=== PATIENT | female | born 1940 | race Hispanic/Latino ===

== ENCOUNTER 2022-01-27 10:15 | Emergency (ER) | payer OTHER ==
--- OUTSIDE RECORDS SUMMARY | 2022-01-27 10:20 | XMS REPORT | Continuity of Care Document ---
:1940 Author Organization [facility] t Address [address] [place] [address] Care Team Providers Name Role Phone Alannah HARDING, A Primary Care Physician Jose Elias Barbour Attending Clinician Unavailable Corbin Klein MD Attending Clinician Doctor Unassigned, Name Attending Clinician Unavailable Jose DUARTE Attending Clinician Unavailable Jose COLLINS Attending Clinician Unavailable JUANY Attending Clinician Unavailable JOSELYN Attending Clinician Unavailable Kallie WELDON Attending Clinician Unavailable CORBIN KLEIN Attending Clinician Unavailable Juan Manuel MESA Attending Clinician Unavailable Juan Manuel MESA Admitting Clinician Unavailable Payers Payer Name Policy Type Policy Number Effective Date Expiration Date S jennifer [employer] MEDICARE ADV [id number] 2019 00:00:00 Problems Condition Condition Condition Status Onset Resolution Last Treating Co mments Source Name Details Category Date Date Treatment Clinician Date Epigastric Epigastric Disease Active N PI:183 pain pain 4-17 [id number] 00:00: 00 Abdominal Abdominal Disease Active NPI :183 pain, pain, 4-11 [id number] lower lower 00:00: 00 Arthritis Arthritis Disease Active NPI :183 4-11 [id number] 00:00: 00 Dysuria Dysuria Disease Active NPI:183 4-11 [id number] 00:00: 00 Vertigo Vertigo Disease Active Overview: NPI: 183 1-01 Formattin [id number] 00:00: g of this 00 note might be different from the original. still with occasiona l episodes Stroke Stroke Disease Active Overview: NPI:18 3 - Formattin [id number] 00:00: g of this 00 note might be different from the original. multiple ministrok es, residual memory problems after High High Disease Active NPI:183 cholestero cholestero 13 60888 l l Osteopenia Osteopenia Disease Active Overview : NPI:183 Formattin [id number] g of this note might be different from the original. initially diagnosed 2005, last DEXA around 02/2019. Allergies, Adverse Reactions, Alerts Allergy Allergy Status Severity Reaction(s) Onset Inactive Treating Comm ents Source Name Type Date Date Clinician BENZALKO DRUG Active Other-Cmnt NPI: 183 NIUM INGREDI 4-16 [id number] 00:00: 00 FLUTICAS DRUG Active Other-Cmnt NPI: 183 ONE INGREDI 4-16 [id number] FUROATE 00:00: 00 Benzalko Propensi Active Other - See 0 Nose N PI:183 nium ty to comments 4-16 spray, [id number] adverse 00:00: nose and reaction 00 mouth s ulcers. Fluticas Propensi Active Other - See 0 Mouth an d NPI:183 one ty to comments 4-16 nose [id number] Furoate adverse 00:00: ulcers reaction 00 s AMLODIPI DRUG Active Unknown-Cmnt 2018-09 DIRECTOR OF SPEECH PATHOLOGY I:183 NE INGREDI 2-30 [id number] 00:00: 00 ATENOLOL DRUG Active Unknown-Cmnt 2018-09 DIRECTOR OF SPEECH PATHOLOGY I:183 -CHLORTH 2-30 [id number] ALIDONE 00:00: 00 CODEINE DRUG Active Rash 2018-09 NPI:183 INGREDI 2-30 [id number] 00:00: 00 IODINE DRUG Active ITCHING 2018-09 NPI:183 INGREDI 2-30 [id number] 00:00: 00 MOMETASO DRUG Active Other-Cmnt 2018-09 NPI: 183 NE INGREDI 2-30 [id number] FUROATE 00:00: 00 SULFAMET DRUG Active Rash 2018- NPI:183 HOXAZOLE INGREDI 2-30 [id number] 00:00: 00 Amlodipi Propensi Active Unknown - 2018- NPI :183 ne ty to See comments 2 1318 781 adverse 00:00: reaction 00 s Atenolol Propensi Active Unknown - 2018-09 NPI :183 -Chlorth ty to See comments 13 22811 alidone adverse 00:00: reaction 00 s Codeine Propensi Active Rash 2018-09 NPI:183 ty to 2 [id number] adverse 00:00: reaction 00 s Iodine Propensi Active Itching 2018-09 Had NPI:183 ty to 230 iodine [id number] adverse 00:00: through reaction 00 veins s Mometaso Propensi Active Other - See 2018-09 Mouth an d NPI:183 ne ty to comments nose [id number] Furoate adverse 00:00: ulcers reaction 00 s Sulfamet Propensi Active Rash 2018-09 NPI:18 3 hoxazole ty to [id number] adverse 00:00: reaction 00 s Social History Social Habit Start Date Stop Date Quantity Comments Source Alcohol intake 2021-01-01 2021-01-01 Ex-drinker NPI:[id number] 00:00:00 00:00:00 (finding) Tobacco use and 2020-01-03 2020-01-03 Never used NPI:[id number] 45609 exposure 00:00:00 00:00:00 Sex [birth year] At [birth year] NPI:[id number] 43491 00:00:00 00:00:00 Smoking Status Start Date Stop Date Source Never smoker Medications Ordered Filled Start Stop Current Ordering Indication Dosage Frequency Signature Comments Components Source Medication Medication Date Date Medication? Clinician (SIG) Name Name GABAPENTIN Yes [id number] TAKE THREE NPI:183 300 mg 5-03 CAPSULES [id number] capsule 00:00: BY MOUTH 00 THREE TIMES A DAY loratadine Yes 10mg Take 10 mg N PI:183 10 mg 4-08 by mouth [id number] tablet 09:11: daily. 26 cholecalcif 2020- Yes 1{tbl} Take 1 DIRECTOR OF SPEECH PATHOLOGY I:183 gabriel, 4-08 tablet by [id number] vitamin D3, 09:11: mouth (D3-2000 26 daily. ORAL) aspirin 2020- Yes 81mg Take 81 mg NPI: 183 (ASPIR-81 4-08 by mouth [id number] 1 ORAL) 09:11: daily. 26 calcium 2020-0 Yes 1{tbl} Take 1 NPI:18 3 carbonate/v 4-08 tablet by 131 8781 itamin D2 09:11: mouth 2 (CALCIUM 26 (two) 600 + D times ORAL) daily. acetaminoph 2020-0 Yes 1{tbl} Take 1 DIRECTOR OF SPEECH PATHOLOGY I:183 en (TYLENOL 4-08 tablet by 131 8781 ARTHRITIS 09:11: mouth as ORAL) 26 needed. MULTIVITAMI 2020-0 Yes Take by DIRECTOR OF SPEECH PATHOLOGY I:183 N ORAL 4-08 mouth. [id number] 09:11: 26 MYTAB GAS, 2020-0 Yes Take by NPI :183 SIMETHICONE 4-08 mouth. [id number] 1 , ORAL 09:11: 26 Red Yeast 2020-0 Yes 1{capsu Take 1 NPI :183 Rice 4-08 le} capsule by [id number] Extract 600 09:11: mouth 2 mg Cap 26 (two) times daily. vitamin e 2020-0 Yes 400U Take 400 NPI: 183 400 unit 4-08 Units by [id number] capsule 09:11: mouth 26 daily. cranberry 2020-0 Yes 4200mg Take 4,200 NPI:183 fruit 4-08 mg by [id number] extract 09:11: mouth (CRANBERRY 26 daily. ORAL) carboxymeth 2020-[address] in N PI:183 ylcellulose 4-08 each eye. 131 8781 sodium 09:11: (REFRESH 26 OPHTHALMIC) peppermint 2020-0 Yes Take by NPI :183 oil 4-08 mouth. [id number] (PEPPERMINT 09:11: capsules ORAL) 26 for GERD loratadine 2020-0 Yes 10mg Take 10 mg N PI:183 10 mg 4-08 by mouth [id number] tablet 09:11: daily. 26 cholecalcif 202-0 Yes 1{tbl} Take 1 DIRECTOR OF SPEECH PATHOLOGY I:183 gabriel, 4-08 tablet by [id number] vitamin D3, 09:11: mouth (D3-2000 26 daily. ORAL) aspirin 202-0 Yes 81mg Take 81 mg NPI: 183 (ASPIR-81 4-08 by mouth [id number] 1 ORAL) 09:11: daily. 26 calcium 202-0 Yes 1{tbl} Take 1 NPI:18 3 carbonate/v 4-08 tablet by 131 8781 itamin D2 09:11: mouth 2 (CALCIUM 26 (two) 600 + D times ORAL) daily. acetaminoph 0 Yes 1{tbl} Take 1 DIRECTOR OF SPEECH PATHOLOGY I:183 en (TYLENOL 4-08 tablet by 131 8781 ARTHRITIS 09:11: mouth as ORAL) 26 needed. MULTIVITAMI Yes Take by DIRECTOR OF SPEECH PATHOLOGY I:183 N ORAL 4-08 mouth. [id number] 09:11: 26 MYTAB GAS, 0 Yes Take by NPI :183 SIMETHICONE 4-08 mouth. [id number] 1 , ORAL 09:11: 26 Red Yeast 0 Yes 1{capsu Take 1 NPI :183 Rice 4-08 le} capsule by [id number] Extract 600 09:11: mouth 2 mg Cap 26 (two) times daily. vitamin e Yes 400U Take 400 NPI: 183 400 unit 4-08 Units by [id number] capsule 09:11: mouth 26 daily. cranberry Yes 4200mg Take 4,200 NPI:183 fruit 4-08 mg by [id number] extract 09:11: mouth (CRANBERRY 26 daily. ORAL) carboxymeth Yes Place in N PI:183 ylcellulose 4-08 each eye. 131 8781 sodium 09:11: (REFRESH 26 OPHTHALMIC) peppermint Yes Take by NPI :183 oil 4-08 mouth. [id number] (PEPPERMINT 09:11: capsules ORAL) 26 for GERD meloxicam 0 Yes [id number] 15mg Take 1 NPI :183 15 mg 3-16 tablet by [id number] tablet 00:00: mouth 00 daily. alendronate 2020-0 Yes [id number] 70mg Take 1 NPI:183 70 mg 3-16 tablet by [id number] tablet 00:00: mouth 00 weekly. losartan-hy 2020-0 Yes [id number] 1{tbl} Take 1 NPI:183 drochloroth 3-16 tablet by 131 8781 iazide 00:00: mouth 100-25 mg 00 daily. per tablet meloxicam 2020-0 Yes [id number] 15mg Take 1 NPI :183 15 mg 3-16 tablet by [id number] tablet 00:00: mouth 00 daily. gabapentin 2020-0 Yes [id number] 900mg Take 3 NPI:183 300 mg 3-16 capsules [id number] capsule 00:00: by mouth 3 00 (three) times daily. alendronate Yes [id number] 70mg Take 1 NPI:183 70 mg 3-16 tablet by [id number] tablet 00:00: mouth 00 weekly. losartan-hy Yes [id number] 1{tbl} Take 1 NPI:183 drochloroth 3-16 tablet by 131 8781 iazide 00:00: mouth 100-25 mg 00 daily. per tablet gabapentin 2021- No [id number] 900mg Take 3 NPI:183 300 mg 3-16 05-03 capsules [id number] capsule 00:00: 00:00 by mouth 3 00 :00 (three) times daily. meclizine Yes [id number] 25mg Take 1 N PI:183 25 mg 4-16 tablet by [id number] tablet 00:00: mouth 3 00 (three) times daily as needed for Dizziness. meclizine Yes [id number] 25mg Take 1 N PI:183 25 mg 4-16 tablet by [id number] tablet 00:00: mouth 3 00 (three) times daily as needed for Dizziness. Immunizations Ordered Immunization Filled Immunization Date Status Commen ts Source Name Name SARS-COV-2 COVID-19 2020-12-06 Completed NPI:1 [id number] PFIZER VACCINE 00:00:00 SARS-COV-2 COVID-19 2020-12-06 Completed NPI:1 [id number] PFIZER VACCINE 00:00:00 SARS-COV-2 COVID-19 2020-11-15 Completed NPI:1 [id number] PFIZER VACCINE 00:00:00 SARS-COV-2 COVID-19 2020-11-15 Completed NPI:1 [id number] PFIZER VACCINE 00:00:00 Influenza High Dose 2020-06-19 Completed NPI:1 [id number] 00:00:00 Influenza High Dose 2020-06-19 Completed NPI:1 [id number] 00:00:00 Influenza High Dose 2019-07-02 Completed NPI:1 [id number] 00:00:00 Influenza High Dose 2019-07-02 Completed NPI:1 [id number] 00:00:00 Influenza Virus 2015-07-16 Completed NPI:[id number] Vaccine Quad IM 00:00:00 Multi-dose 6+ MO Influenza Virus 2015-07-16 Completed NPI:[id number] Vaccine Quad IM 00:00:00 Multi-dose 6+ MO TDAP 2009-02-17 Completed 00:00:00 TDAP 2009-02-17 Completed 00:00:00 Zoster(Zostavax)([facility] 2008-06-19 Completed ngles) 00:00:00 Zoster(Zostavax)([facility] 2008-06-19 Completed ngles) 00:00:00 Pneumococcal 2006-07-20 Completed NPI:[id number] Polysaccharide, 00:00:00 PPSV23 (PNEUMOVAX) Pneumococcal 2006-07-20 Completed NPI:[id number] Polysaccharide, 00:00:00 PPSV23 (PNEUMOVAX) Procedures Procedure Date / Time Performed Performing Clinician [facility] e AUTHORIZATION FOR RELEASE 2021-06-05 05:01:00 Doctor Unassigned, No OF [facility] Name Encounters Start End Encounter Admission Attending Care Care Encounter Source Date/Time Date/Time Type Type Clinicians Facility Department ID 2021-11-19 Outpatient Barbour, Na STLMLC STLMLC [id number] NPI:174 09:15:02 [id number] 2021-10-14 Outpatient Barbour, Na STLMLC STLMLC [id number] NPI:174 14:33:17 [id number] 2021-10-14 Outpatient Barbour, Na STLMLC STLMLC [id number] NPI:174 14:32:27 [id number] 2021-10-14 Outpatient Barbour, Na STLMLC STLMLC [id number] NPI:174 14:32:03 [id number] 2021-10-14 Outpatient Barbour, Na STLMLC STLMLC [id number] NPI:174 14:31:08 [id number] 2021-10-14 Outpatient Barbour, Na STLMLC STLMLC [id number] NPI:174 14:22:55 [id number] 2021-10-14 Outpatient STLMLC STLMLC [id number] NPI:174 13:50:23 [id number] 2022-01-18 2022-01-18 [facility] [id number] NPI:183 00:00:00 00:00:00 [facility] [id number] Corbin OAKLEY [id number] CANDE?BLEA [phone] [place] [address] [facility] 2021-06-05 2021-06-05 Orders Doctor SHAHLA [id number] NPI:183 00:00:00 00:00:00 Only Unassigned, MIRLANDE [id number] [place] [facility] [id number] 2021-03-11 2021-03-11 [id number] NPI:183 08:00:00 08:00:00 ELKE [id number] 2021-01-16 2021-01-16 Outpatient R [facility] [id number] NPI:183 09:20:00 09:20:00 [id number] 2021-01-01 2021-01-01 [facility] [id number] NPI:183 16:20:00 16:20:00 LONI [id number] 2021-01-01 2021-01-01 [facility] [id number] NPI:183 16:20:00 16:20:00 LONI [id number] 2020-12-31 [facility] [id number] NPI:183 09:30:00 09:30:00 DARA [id number] 2020-12-31 2020-12-31 [facility] [id number] NPI:183 09:30:00 09:30:00 DARA [id number] 2020-12-26 2020-12-26 [facility] [id number] NPI:183 00:00:00 00:00:00 WALKER [id number] 2020-12-26 2020-12-26 Outpatient Arlyn ALVES [facility] [id number] NPI:183 00:00:00 00:00:00 WALKER [id number] 2020-12-25 2020-12-25 Outpatient Arlyn COLLINS, [facility] [id number] NPI:183 09:20:00 09:20:00 LONI [id number] 2020-12-25 2020-12-25 Outpatient Arlyn COLLINS, [facility] [id number] NPI:183 09:20:00 09:20:00 LONI [id number] 2020-12-23 Outpatient [facility] [id number] NPI:183 09:20:00 09:20:00 [id number] 2020-12-23 2020-12-23 Outpatient Arlyn ALVES [facility] [id number] NPI:183 09:20:00 09:20:00 WALKER [id number] 2020-12-06 2020-12-06 Outpatient FATEMEH [facility] [id number] NPI:183 10:05:00 10:05:00 BARBARA [id number] 2020-12-02 2020-12-02 Outpatient Arlyn KLEIN [facility] [id number] NPI:183 10:00:00 10:00:00 CHRISTY [id number] 2020-12-02 2020-12-02 Outpatient Arlyn KLEIN, [facility] [id number] NPI:183 10:00:00 10:00:00 CHRISTY [id number] 2020-12-01 2020-12-01 Outpatient Arlyn HARRINGTON [facility] [id number] NPI:183 09:30:00 09:30:00 DARA [id number] [id number] 2020-12-01 2020-12-01 [facility] [id number] NPI:183 09:30:00 09:30:00 DARA [id number] 2020-11-15 2020-11-15 Outpatient [facility] [id number] NPI:183 10:25:00 10:25:00 [id number] 2020-05-20 2020-05-20 Outpatient R ALANNAH [facility] [id number] NPI:183 15:00:00 15:00:00 LONI [id number] 2020-05-20 2020-05-20 Outpatient Arlyn COLLINS [facility] [id number] NPI:183 15:00:00 15:00:00 LONI [id number] 2020-04-10 Outpatient [facility] [id number] NPI:183 09:00:00 09:00:00 [id number] 2020-04-08 2020-04-08 Outpatient [facility] [id number] NPI:183 08:40:00 08:40:00 [id number] 2020-04-02 2020-04-02 Outpatient R [facility] [id number] NPI:183 10:00:00 10:00:00 [id number] 2020-03-31 2020-03-31 Outpatient R [facility] [id number] -[id number] NPI:183 14:40:00 14:40:00 [id number] 2020-03-31 2020-03-31 Outpatient R [facility] [id number] NPI:183 14:40:00 14:40:00 [id number] 2020-03-19 2020-03-19 Outpatient R [facility] [id number] NPI:183 11:30:00 11:30:00 [id number] 2020-03-19 2020-03-19 Outpatient R ALANNAH [facility] [id number] NPI:183 11:30:00 11:30:00 LONI [id number] 2020-03-18 Outpatient R ALANNAH [facility] [id number] NPI:183 15:40:00 15:40:00 LONI [id number] 2020-03-18 2020-03-18 Outpatient R ALANNAH [facility] [id number] NPI:183 15:40:00 15:40:00 LONI [id number] 2020-03-14 Outpatient R [facility] [id number] NPI:183 11:15:00 11:15:00 [id number] 2020-03-14 2020-03-14 [facility] [id number] NPI:183 11:15:00 11:15:00 LONI [id number] 2020-03-10 Outpatient R [facility] [id number] NPI:183 10:00:00 10:00:00 [id number] 2020-03-10 2020-03-10 [facility] [id number] NPI:183 10:00:00 10:00:[place] [id number] 2020-03-06 [facility] [id number] NPI:183 15:00:00 15:00:00 LONI [id number] 2019-09-17 2019-09-17 Emergency X [facility] ERT [id number] NPI:183 16:37:29 18:32:00 GEORGES [id number] Results This patient has no known results.
[2022-01-27] MEDS ORDERED: FAMOTIDINE 20 MG/2 ML VIAL IV ONE (11:06)
[2022-01-27 11:13] LABS: Absolute Lymphocytes (CBC) 1.5 K/uL (0.7-4.9); Hematocrit 37.7 % (36.0-45.0); Lymphocytes % 22.4 % (15.3-44.8); MPV 8.3 fL (7.6-11.3); RBC Red Blood Cell Count 4.17 M/uL (3.86-4.86)
[2022-01-27 11:23] LABS: Albumin 3.8 g/dL (3.4-5.0); Bilirubin Total 0.4 mg/dL (0.2-1.0); Potassium 3.6 mmol/L (3.5-5.1); Protein, Total 8.1 g/dL (6.4-8.2)
[2022-01-27 11:27] LABS: Urine Appearance Clear (Clear); Urine Bilirubin Negative (Negative); Urine Blood Trace-intact (Negative); Urine Color Yellow (Yellow); Urine Glucose Negative (Negative); Urine Protein Negative (Negative); Urine Urobilinogen 0.2 mg/dL (0.2-1.0); Urine pH 6.5 (5.0-7.0)
[2022-01-27 11:32] LABS: Urine Microscopic Reflex ORDER UMIC
[2022-01-27 11:34] LABS: Urine Bacteria <20 /HPF (<20); Urine RBC <5 /HPF (NONE SEEN)
--- NOTE | 2022-01-27 11:53 | RAD REPORT ---
EXAM DESCRIPTION: CTAbdomen Pelvis W Contrast - 01/27/2022 11:42 am CLINICAL HISTORY: Abdominal pain. Diffuse abdominal pain, vaginal spotting COMPARISON: No comparisons TECHNIQUE: Biphasic CT imaging of the abdomen and pelvis was performed with 100 ml non-ionic IV cont rast. All CT scans are performed using dose optimization technique as appropriate and may include automated exposure control or mA/KV adjustment according to patient size. FINDINGS: The lung bases are clear. The liver, spleen, pancreas, adrenal glands and kidneys are within normal limits. Cholelithiasis. No bowel obstruction, free air, free fluid or abscess. Sigmoid diverticulosis coli without diverticul itis. Appendectomy. Mild urinary bladder wall thickening seen. No evidence of significant lymphadenop athy. Lower lumbar hardware is in place. IMPRESSION: No acute intra-abdominal or pelvic finding. Cholelithiasis. Sigmoid diverticulosis coli without diverticulitis. Mild urinary bladder wall thickening could indicate cystitis.
--- NOTE | 2022-01-27 12:53 | ER ---
Nurse's Notes [facility] Name: Syeda Ryan Age: 81 yrs Sex: Female : 1940 Arrival Date: 01/27/2022 Time: 10:20 Bed 20 Private MD: Vernell Barbour Diagnosis: Abdominal pain, unspecified Presentation: 01/27 10:41 Chief complaint: Patient states: Abdominal pain x 3 months, blood noted on toilet paper jl7 after voiding this morning, was treated for UTI in November. Denies burning and pain with urination at this time. Coronavirus screen: At this time, the client does not indicate any symptoms associated with coronavirus-19. Ebola Screen: No symptoms or risks identified at this time. Initial Sepsis Screen: Does the patient meet any 2 criteria? No. Patient's initial sepsis screen is negative. Does the patient have a suspected source of infection? No. Patient's initial sepsis screen is negative. Risk Assessment: Do you want to hurt yourself or someone else? Patient reports no desire to harm self or others. Onset of symptoms was January 27, 2022. 10:41 Method Of Arrival: Ambulatory jl7 10:41 Acuity: HODAN 3 jl7 Triage Assessment: 10:42 General: Appears in no apparent distress. uncomfortable, Behavior is calm, cooperative, jl7 appropriate for age. Pain: Complains of pain in abdomen Pain currently is 5 out of 10 on a pain scale. : Reports vaginal bleeding that is. Historical: - Allergies: 10:42 codeine sulfate; jl7 10:42 Iodine; jl7 10:42 atenolol-chlorthalidone; jl7 10:42 amlodipine; jl7 10:42 Nasonex; jl7 10:42 veramist; jl7 10:42 sulfamethoxazole-trimethoprim; jl7 10:42 Nasalcrom; jl7 - Home Meds: 10:42 losartan-hydrochlorothiazide 100-25 mg oral tab 1 tab once daily [Active]; gabapentin jl7 300 mg oral cap 3 caps 3 times per day [Active]; alendronate 10 mg oral tab 1 tab once weekly [Active]; - PMHx: 10:42 Hypertensive disorder; jl7 10:49 Osteoporosis; jl7 - Immunization history:: Client reports receiving the 2nd dose of the Covid vaccine. - Social history:: Smoking status: Patient denies any tobacco usage or history of. Screenin:50 Abuse screen: Denies threats or abuse. Nutritional screening: No deficits noted. 6 Tuberculosis screening: No symptoms or risk factors identified. 10:50 Fall Risk None identified. 6 Assessment: 11:04 General: Appears in no apparent distress. Behavior is calm, cooperative. Pain: 6 Complains of pain in suprapubic area, right lower quadrant and left lower quadrant Pain currently is 2 out of 10 on a pain scale. Quality of pain is described as aching, heavy, Pain began 2 hours ago. Is continuous. : Reports cramping, discharge, bloody, pain in suprapubic area. 11:59 Reassessment: No changes from previously documented assessment. Patient and/or family 6 updated on plan of care and expected duration. Pain level reassessed. Patient denies pain at this time. 13:32 Reassessment: Patient and/or family updated on plan of care and expected duration. Pain jh6 level reassessed. Patient denies pain at this time. Vital Signs: 10:41 BP 180 / 77; Pulse 69; Resp 15; Temp 97.5; Pulse Ox 99% on R/A; Weight 63.5 kg; Height jl7 5 ft. 2 in. (157.48 cm); Pain 5/10; 11:59 BP 127 / 74; Pulse 61; Resp 18; Pulse Ox 100% ; Pain 0/10; jh6 13:32 BP 132 / 78; Pulse 74; Resp 18; Pulse Ox 100% ; Pain 0/10; jh6 10:41 Body Mass Index 25.61 (63.50 kg, 157.48 cm) 7 ED Course: 10:20 Patient arrived in ED. mr 10:20 Vernell Barbour MD is Private Physician. mr 10:24 Larry Marcos DO is Attending Physician. ms3 10:42 Triage completed. jl7 10:42 Arm band placed on. jl7 10:45 Flores Elizabeth, ISAAK is Primary Nurse. 6 11:06 No provider procedures requiring assistance completed. Initial lab(s) drawn, by ny, jh6 sent to lab. Urine collected: clean catch specimen, clear. Inserted saline lock: 20 gauge in right antecubital area, using aseptic technique. 11:07 Placed in gown. Bed in low position. Call light in reach. Side rails up X 1. [facility] 11:43 CT Abd/Pelvis - IV Contrast Only In Process Unspecified. EDMS 12:26 Urine Microscopic Only Sent. 12:53 Chaz Ramirez MD is Referral Physician. ms3 13:35 IV discontinued, intact, bleeding controlled, No redness/swelling at site. Pressure 6 dressing applied. Administered Medications: 11:03 Drug: Pepcid (famotidine) 20 mg Route: IVP; Site: right antecubital; 6 Outcome: 12:53 Discharge ordered by . ms3 13:33 Discharged to home ambulatory. 6 13:33 Condition: good 13:33 Discharge instructions given to patient, Instructed on discharge instructions, follow up and referral plans. Demonstrated understanding of instructions, follow-up care. 13:35 Patient left the ED. 6 Signatures: Dispatcher [employer] EDMN Jewell Pina mr Estelita Tyson RN RN jl7 Larry Marcos DO DO ms3 Flores Elizabeth, ISAAK RN 6 Muna Marsh, ISAAK RN
--- NOTE | 2022-01-27 12:53 | EDPHYS ---
Physician Documentation [facility] Name: Syeda Ryan Age: 81 yrs Sex: Female : 1940 Arrival Date: 01/27/2022 Time: 10:20 Bed 20 Private MD: Vernell Barbour ED Physician Larry Marcos HPI: 01/27 12:54 This 81 yrs old Female presents to ER via Ambulatory with complaints of ms3 Vaginal Bleeding. 12:54 This 81 yrs old Female presents to ER via Ambulatory with complaints of ms3 Abdominal pain, spotting. 12:54 The patient presents with vaginal bleeding that is. Onset: The symptoms/episode ms3 began/occurred today. Modifying factors: The symptoms are alleviated by nothing, the symptoms are aggravated by nothing. Associated signs and symptoms: The patient has no apparent associated signs or symptoms. 81-year-old female with past medical history of hypertension, osteoporosis presents for abdominal pain that has been ongoing for 3 months. Patient states she began spotting this morning called her primary care physician who told her to come to the emergency department. Patient states her abdominal discomfort is a 5 out of 10 and described as burning. Patient denies nausea, vomiting, diarrhea, fevers, chills. Historical: - Allergies: 10:42 codeine sulfate; jl7 10:42 Iodine; jl7 10:42 atenolol-chlorthalidone; jl7 10:42 amlodipine; jl7 10:42 Nasonex; jl7 10:42 veramist; jl7 10:42 sulfamethoxazole-trimethoprim; jl7 10:42 Nasalcrom; jl7 - Home Meds: 10:42 losartan-hydrochlorothiazide 100-25 mg oral tab 1 tab once daily [Active]; gabapentin jl7 300 mg oral cap 3 caps 3 times per day [Active]; alendronate 10 mg oral tab 1 tab once weekly [Active]; - PMHx: 10:42 Hypertensive disorder; jl7 10:49 Osteoporosis; jl7 - Immunization history:: Client reports receiving the 2nd dose of the Covid vaccine. - Social history:: Smoking status: Patient denies any tobacco usage or history of. ROS: 12:54 Constitutional: Negative for fever, and chills. Eyes: Negative for injury, pain, ms3 redness, and discharge, Neck: Negative for injury, pain, and swelling, Cardiovascular: Negative for chest pain, and palpitations. Respiratory: Negative for shortness of breath, cough, wheezing, and pleuritic chest pain, MS/Extremity: Negative for injury and deformity, Skin: Negative for injury, rash, and discoloration, Neuro: Negative for headache, weakness, numbness, tingling. 12:54 Abdomen/GI: Positive for abdominal pain. 12:54 : Positive for vaginal bleeding. Exam: 12:54 Constitutional: This is a well developed, well nourished patient who is awake, alert, ms3 and in no acute distress. Head/Face: Normocephalic, atraumatic. Neck: Trachea midline, no cervical lymphadenopathy. Supple, full range of motion without nuchal rigidity, or vertebral point tenderness. No Meningismus. Chest/axilla: Normal chest wall appearance and motion. Nontender with no deformity. Cardiovascular: Regular rate and rhythm with a normal S1 and S2. No gallops, murmurs, or rubs. Normal PMI, no JVD. No pulse deficits. Respiratory: Lungs have equal breath sounds bilaterally, clear to auscultation and percussion. No rales, rhonchi or wheezes noted. No increased work of breathing, no retractions or nasal flaring. Abdomen/GI: Soft, non-tender, with normal bowel sounds. No distension or tympany. No guarding or rebound. No evidence of tenderness throughout. Skin: Warm, dry with normal turgor. Normal color with no rashes, no lesions, and no evidence of cellulitis. Psych: Awake, alert, with orientation to person, place and time. Behavior, mood, and affect are within normal limits. Vital Signs: 10:41 BP 180 / 77; Pulse 69; Resp 15; Temp 97.5; Pulse Ox 99% on R/A; Weight 63.5 kg; Height jl7 5 ft. 2 in. (157.48 cm); Pain 5/10; 11:59 BP 127 / 74; Pulse 61; Resp 18; Pulse Ox 100% ; Pain 0/10; jh6 13:32 BP 132 / 78; Pulse 74; Resp 18; Pulse Ox 100% ; Pain 0/10; jh6 10:41 Body Mass Index 25.61 (63.50 kg, 157.48 cm) 7 MDM: 10:37 Patient medically screened. ms3 12:54 Differential diagnosis: malignancy, Uterine CA, Diverticulitis. Data reviewed: vital ms3 signs, nurses notes, lab test result(s), radiologic studies. Counseling: I had a detailed discussion with the patient and/or guardian regarding: the historical points, exam findings, and any diagnostic results supporting the discharge/admit diagnosis, lab results, radiology results, the need for outpatient follow up, to return to the emergency department if symptoms worsen or persist or if there are any questions or concerns that arise at home. ED course: Discussed labs, CT abdomen and pelvis, physical exam findings with patient. Patient to follow-up with Dr. Ramirez in 2 to 3 days. Patient understands and agrees with plan. All questions were answered. Return precautions discussed include worsening symptoms, or any other concerns. On reevaluation patient symptoms improved, patient is alert and oriented x4, no apparent distress, nontoxic, ambulatory in emergency department, tolerating p.o.. 01/27 10:41 Order name: CBC with Diff; Complete Time: 11:52 nd3 01/27 10:41 Order name: CMP; Complete Time: 11:52 nd3 01/27 10:41 Order name: Lipase; Complete Time: 11:52 nd3 01/27 11:27 Order name: Urinalysis; Complete Time: 11:52 [facility] 01/27 10:41 Order name: CT Abd/Pelvis - IV Contrast Only; Complete Time: 12:29 nd3 01/27 10:41 Order name: IV Saline Lock; Complete Time: 11:27 nd3 01/27 10:41 Order name: Labs collected and sent; Complete Time: 11:27 nd3 01/27 11:36 Order name: Urine Culture EDIA 01/27 11:36 Order name: Urine Microscopic Only EDIA Administered Medications: 11:03 Drug: Pepcid (famotidine) 20 mg Route: IVP; Site: right antecubital; jh6 Disposition Summary: 01/27/22 12:53 Discharge Ordered Location: Home ms3 Condition: Stable ms3 Diagnosis - Abdominal pain, unspecified ms3 Followup: ms3 - With: Chaz Ramirez MD - When: 2 - 3 days - Reason: Recheck today's complaints Discharge Instructions: - Discharge Summary Sheet ms3 - Hematuria, Adult ms3 Forms: - Medication Reconciliation Form ms3 - Thank You Letter ms3 - Antibiotic Education ms3 - Prescription Opioid Use ms3 Signatures: Dispatcher [employer] EDMS Estelita Tyson, RN RN jl7 Larry Marcos DO DO ms3 Flores Elizabeth, RN RN jh6 Corrections: (The following items were deleted from the chart) 11:36 11:27 URINE DIPSTICK--ANCILLARY+U.LAB.BRZ ordered. EDMS EDMS 11:39 10:41 UA MICROSCOPIC+U.LAB.BRZ ordered. EDMS EDMS
[2022-01-27 13:42] VITALS: TEMP 97.5
[2022-01-27 13:44] VITALS: O2SAT 100
[2022-01-27 13:45] VITALS: BP 132/78
== END 2022-01-27 13:35 | disposition home or self-care (01) ==
LOC: ER 10:15
DX: R10.9 Unspecified abdominal pain (principal); N93.9 Abnormal uterine and vaginal bleeding, unspecified; I10 Essential (primary) hypertension; Z88.2 Allergy status to sulfonamides; Z88.5 Allergy status to narcotic agent; Z88.8 Allergy status to other drugs, medicaments and biological substances
CPT/HCPCS: 87088; 85025; 87086; 36415; 83690; 80053; 74177; Q9967; J3490; 81003; 81015